=== PATIENT | female | born 1985 | race Caucasian/White ===

== ENCOUNTER 2018-06-11 13:09 | Inpatient (IN) | payer OTHER ==
[~2018-06-11] VITALS: Ht 170.2 cm; Wt 67.6 kg
== END 2018-06-12 19:14 | disposition home or self-care (01) | DRG 832 ==
LOC: LDR 13:09
PROC: BY4FZZZ Ultrasonography of Third Trimester, Single Fetus (ICD-10-PCS; principal; 2018-06-11)
PROC: 4A1HXCZ Monitoring of Products of Conception, Cardiac Rate, External Approach (ICD-10-PCS; 2018-06-11)
DX: O13.3 Gestational [pregnancy-induced] hypertension without significant proteinuria, third trimester (principal); O47.03 False labor before 37 completed weeks of gestation, third trimester; Z34.83 Encounter for supervision of other normal pregnancy, third trimester

== ENCOUNTER → 2018-06-11 | Emergency (ER) | payer OTHER ==
[~2018-06-11] VITALS: Ht 170.2 cm; Wt 67.6 kg
[~2018-06-11] MED LIST: B-121000 MC2 SL; PRENATAL + DHA1 EAC1 PO; VITAMIN D-32000 UNIT PO
== END | disposition home or self-care (01) ==
LOC: ER 08:49
DX: O16.3 Unspecified maternal hypertension, third trimester (principal); O26.893 Other specified pregnancy related conditions, third trimester; R51 Headache; Z34.83 Encounter for supervision of other normal pregnancy, third trimester

== ENCOUNTER 2018-06-25 21:46 | Inpatient (IN) | payer OTHER ==
[~2018-06-25] VITALS: Ht 170.2 cm; Wt 67.6 kg
== END 2018-06-28 18:59 | disposition home or self-care (01) | DRG 807 ==
LOC: OBS/DEL 21:46 → OB/GYN 06-26 10:58 → LDR 06-26 10:58 → OB/GYN 06-26 18:51 → LDR 06-26 19:03 → OB/GYN 06-26 19:35
PROC: 10E0XZZ Delivery of Products of Conception, External Approach (ICD-10-PCS; principal; 2018-06-26)
PROC: 0UQGXZZ Repair Vagina, External Approach (ICD-10-PCS; 2018-06-26)
PROC: 10907ZC Drainage of Amniotic Fluid, Therapeutic from Products of Conception, Via Natural or Artificial Opening (ICD-10-PCS; 2018-06-26)
PROC: 3E033VJ Introduction of Other Hormone into Peripheral Vein, Percutaneous Approach (ICD-10-PCS; 2018-06-26)
PROC: 4A1HXCZ Monitoring of Products of Conception, Cardiac Rate, External Approach (ICD-10-PCS; 2018-06-26)
DX: O71.4 Obstetric high vaginal laceration alone (principal); Z37.0 Single live birth; Z3A.37 37 weeks gestation of pregnancy

== ENCOUNTER → 2018-06-29 | Emergency (ER) | payer OTHER ==
[~2018-06-29] VITALS: Ht 170.2 cm; Wt 62.1 kg
== END | disposition left against medical advice (07) ==
LOC: ER 19:49
DX: Z53.21 Procedure and treatment not carried out due to patient leaving prior to being seen by health care provider (principal)

== ENCOUNTER 2018-06-30 20:22 | Emergency (ER) | payer OTHER ==
[~2018-06-30] VITALS: Ht 170.2 cm; Wt 61.7 kg
== END 2018-06-30 22:50 | disposition home or self-care (01) ==
LOC: ER 20:22
DX: I10 Essential (primary) hypertension (principal)